=== PATIENT | male | born 1965 | race Two or more races ===

== ENCOUNTER 2024-12-07 18:54 | Emergency (ER) | payer BC, MEDICAID, SELFPAY ==
[2024-12-07 18:56] VITALS: BMI 27.1
[2024-12-07 19:47] VITALS: BP 88/59; PULSE 96; RESP 18; TEMP 37.2; O2SAT 99
--- NOTE | 2024-12-07 19:55 | EKG_ITS ---
[facility] Test Date: 2024-12-07 Pat Name: SHABANA RM Department: Room: - Gender: Male Billing Checker: : 1965 Requested By: Zachery Pendleton Order Number: [id number] Reading MD: Zachery Pendleton Measurements Intervals [place] Rate: 86 P: 26 [place]: 183 QRS: -37 QRSD: 99 T: 46 QT: 342 QTc: 411 Interpretive Statements SINUS RHYTHM LEFT AXIS DEVIATION [QRS AXIS < -30] No previous ECG available for comparison /store/S0/[id number].pdf
--- NOTE | 2024-12-07 20:21 | XR_ITS ---
Examination: PA chest single view TECHNIQUE: Upright PA chest single view Date and time: December 07, 2024 2048 hours INDICATIONS: Shortness of breath beginning 2 weeks ago. FINDINGS: Suspicious for early left base pneumonia, obscuring detail medial portion left hemidiaphragm Right lung clear Normal heart size IMPRESSION: Suspicious for early left basilar pneumonia
--- NOTE | 2024-12-07 20:21 | XR_ITS ---
Examination: CT brain head without contrast. 2-D sagittal coronal reconstructions Date and time of exam:December 07, 20242036 hours INDICATIONS: Headache weakness blurred vision dizziness today CTDI: vol (mGy):53 DLP: (mGycm):1053 Technique: Multiple CT axial sections of the brain have been obtained, 5 mm slice thickness. Contrast has not been administered. 2-D sagittal, coronal reconstructions have been obtained Low dose protocols were performed. One or more of the following dose reduction techniques were used; automated exposure control, adjustment of the mA and/or KV according to patient size, use of iterative reconstruction technique. Findings: No significant ventricular enlargement. 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 No mass effect or midline shift Basal cisterns are not remarkable. Fourth ventricle is midline. Cranial vault intact. Impression: Negative for acute hemorrhage, mass effect or midline shift Advise clinical correlation and follow up accordingly
--- NOTE | 2024-12-07 20:35 | PD.EDRECHK ---
ED Recheck Abnl Lab Rx-RME/HPI General Chief Complaint: General Adult/Misc Complain Stated Complaint: NEUROPATHY X1 YEAR WITH BLURRY VISION, HX DM Time Seen by Provider: 12/07/24 20:14 Arrival date/time: 12/07/24 18:54 59M with history of DM (not very adherent) and cataract surgery, as well as smoking, presents to ED with 1 year of intermittent blurry vision and dizziness/vertigo. Patient has also has peripheral numbness for the past year. Patient sees PCP once a month, but states PCP is not managing DM well. Separately, patient has 1 week of intermittent SOB, but denies URI symptoms. Limitations: no limitations Related Data Previous Rx's ?Medication ?Instructions ?Recorded ibuprofen 800 mg tablet (IBU) 800 mg PO Q8H #20 tabs 08/28/23 empagliflozin 25 mg tablet 25 mg PO QDAY #30 tabs 09/18/23 (Jardiance) Allergies Allergy/AdvReac Type Severity Reaction Status Date / Time No Known Allergies Allergy Verified 12/07/24 18:59 Review of Systems Review of Systems Systems Reviewed: All systems reviewed, normal except as documented Constitutional Constitutional: Reports system reviewed and no additional complaints, except as documented, Denies fever(s) and Denies headache(s) Eyes Eyes: Reports as per HPI and Reports blurry vision ENT Ears, Nose, Mouth, and Throat: Reports as per HPI, Denies disequilibrium, Denies headache(s) and Reports vertigo Cardiovascular Cardiovascular: Reports system reviewed and no additional complaints, except as documented, Denies chest pain and Denies dyspnea Respiratory Respiratory: Reports system reviewed and no additional complaints, except as documented, Denies cough and Denies dyspnea Gastrointestinal Gastrointestinal: Reports system reviewed and no additional complaints, except as documented, Denies abdominal pain, Denies nausea and Denies vomiting Musculoskeletal Musculoskeletal: Reports numbness Neurologic Neurologic: Reports system reviewed and no additional complaints, except as documented, Reports as per HPI, Denies confusion, Denies disequilibrium, Denies headache(s), Reports numbness and Reports vertigo Psychiatric Psychiatric: Denies confusion Past Medical History Past Medical History ENDOCRINE: Positive Diabetes Mellitus Type 2 Social History SMOKING STATUS: Heavy (> 1 pack/day) ED Exam General Limitations: Present no limitations General appearance: Present alert and in no apparent distress Head Head exam: Present atraumatic Eye Eye exam: Present normal appearance, PERRL and EOMI ENT ENT exam: Present normal exam, normal oropharynx and mucous membranes moist Neck Neck exam: Present normal inspection, full ROM and trachea midline Chest Chest inspection: Present normal inspection and symmetric chest wall rise Respiratory Respiratory exam: Present normal lung sounds bilaterally Cardiovascular Cardiovascular exam: Present regular rate, normal rhythm and normal heart sounds Abdominal Exam Abdominal exam: Present soft and normal bowel sounds Extremities Exam Extremities exam: Present normal inspection and full ROM Back Exam Back exam: Present normal inspection and full ROM Neurological Exam Neurological exam: Present alert, oriented X3 and CN II-XII intact Psychiatric Psychiatric exam: Present normal affect and normal mood Skin Skin exam: Present warm, dry, intact and normal color Course Quality Measures none Orders Category Date Time Status Blood glucose [Bedside Blood Glucose] NOW Care 12/07/24 19:55 Active EKG (ED ONLY) *Do not use* NOW Care 12/07/24 19:[address] head/brain wo con Stat Exams 12/07/24 20:21 Completed EKG (ED Only) Stat Exams 12/07/24 19:55 Draft XR chest 1V portable Stat Exams 12/07/24 20:21 Completed A1C [Glycohemoglobin w (eAG)] Stat Lab 12/07/24 20:35 Completed Alcohol, Blood Medical Stat Lab 12/07/24 20:35 Completed BNP [B-Type Natriuretic Peptide] Stat Lab 12/07/24 20:35 Completed CBC Stat Lab 12/07/24 20:35 Completed CMP [Comprehensive Metabolic Panel] Stat Lab 12/07/24 20:35 Completed Cocci Serology IgM with reflex to IgG [Cocci Serology, Lab 12/07/24 20:35 Received Unk History] Stat Drug Screen,Urine Stat Lab 12/07/24 20:27 Completed Free T4 (Free Thyroxine) Stat Lab 12/07/24 20:35 Completed Lactate (Lactic Acid) Stat Lab 12/07/24 20:35 Completed Procalcitonin Stat Lab 12/07/24 20:35 Completed TSH [Thyroid Stimulating Hormone] Stat Lab 12/07/24 20:35 Completed Troponin I Stat Lab 12/07/24 20:35 Completed Urinalysis, C/S if Indicated Stat Lab 12/07/24 20:27 Completed Gabapentin [Neurontin] Med 12/07/24 20:22 Discontinued 300 mg PO X1 ONE Vital Signs Vital signs: Vital Signs Temperature 99 F 12/07/24 19:47 Pulse Rate 96 12/07/24 19:47 Respiratory Rate 18 12/07/24 19:47 Blood Pressure 88/59 L 12/07/24 19:47 Pulse Oximetry (%) 99 12/07/24 19:47 Oxygen Delivery Method Room Air 12/07/24 19:47 O2 at 99% on RA and WNLs Recheck / Abnormal Lab / Rx MDM Narrative MDM Narrative:: 59M with history of DM (not very adherent) and cataract surgery, as well as smoking, presents to ED with 1 year of intermittent blurry vision and dizziness/vertigo. Patient has also has peripheral numbness for the past year. Patient sees PCP once a month, but states PCP is not managing DM well. Separately, patient has 1 week of intermittent SOB, but denies URI symptoms. Physical exam reveals mildly pinpoint pupils. Speech normal. Gait normal. Normal WOB. Patient is afebrile, calm, and alert. EKG is NSR. CT head old CVA, though patient does not remember if it happened. No leukocytosis or anemia. CMP unremarkable. Procal/lactate normal. CXR possible PNA, but patient denies cough. CMP, TSH, T4 unremarkable. A1C 8.3%. Trop normal. UA clean with no dehydration. Lots of glucose. Hammer Setter given. Patient data External records reviewed:: [facility] previous records Clinical information provided by:: patient Social determinants that could affect healthcare access:: none Patient has the following chronic illnesses:: DM, cataract surgery, and smoking How is presenting disease/condition affected by chronic disease/condition?: exacerbated by Evaluation data The following diagnostics were reviewed and interpreted by me:: lab results, radiology exam(s) and EKG tracing(s) Lab and/or radiology exams considered but not ordered:: ordered Interpretation Summary: above Medications / Prescriptions Medications or Prescriptions considered but not ordered:: ordered Medication administrations:: Medication Administration History Discontinued Medications Gabapentin (Gabapentin 300 Mg Capsule) 300 mg PO X1 ONE Stop: 12/07/24 20:23 Last Admin: 12/07/24 21:32 Dose: 300 mg Documented By: GG above Consultations Consultation(s) initiated? (list below): No Diagnosis Recheck Differential Diagnosis: encounter for medication refill, encounter for wound recheck, encounter for recheck of burn, encounter for removal of sutures, warfarin-induced coagulopathy and other (DM complication and dizziness) Most likely diagnosis given after review of the tests above:: DM complication and dizziness Admission Indicated Admission indicated?: not indicated Admission Request Was there a request for admission?: No Disposition Plan Disposition Plan: Discharge Discharge Attestation Discharge Attestation: The patient and all family members were given an opportunity to ask questions and understood the discharge instructions. Discharge instructions specifically effects, indications for sooner follow up or return to the emergency department, and the expected course of current diagnosis. Patient condition: Stable Discharge Plan Plan Patient Disposition: HOME (Self Care) Discharge Disposition comment: Stable Prescriptions/Referrals Prescriptions/Med Rec: No Action ibuprofen [IBU] 800 mg tablet 800 mg PO Q8H Qty: 20 0RF Jardiance 25 mg tablet 25 mg PO QDAY Qty: 30 0RF Referrals: No Primary/Family,Physician [Primary Care Provider] - In 1 week Problem List Clinical Impression: Dizziness, Diabetes mellitus with multiple complications Patient/Caregiver Discharge Instructions Education Materials: ED Dizziness, Uncertain Cause Additional Instructions: Please follow-up with PCP within 24-48 hours and return immediately if symptoms worsen. Print Language: Vietnamese Stand Alone Forms: Patient Portal Info Letter PA/SENIOR ARCHITECT/DESIGN MANAGER Supervising Physician JAG/OPAL Supervising Physician: Dr. Fairchild
[2024-12-07 20:55] LABS: Collection Type, Urine Clean Catch; Squamous Epithelial Cell,Urine 0 /hpf (0-5)
[2024-12-07 20:59] LABS: Basophils # (Auto) 0.1 Thou/mm3 (0.0-0.2); Basophils % (Auto) 1 % (0-2.5); Eosinophils # (Auto) 0.3 Thou/mm3 (0.0-0.5); Eosinophils % (Auto) 3 % (0-10); Hematocrit 51.4 % (41.0-53.0); Hemoglobin 17.9 g/dL (13.5-16.0); Immature Granulocytes % (Auto) 0 % (0-0); Immature Granulocytes Auto 0.03 Thou/mm3 (0.00-0.00); Lymphocytes # (Auto) 2.7 Thou/mm3 (1.0-4.8); Lymphocytes % (Auto) 29 % (10-50); Mean Corpuscular HGB Conc 34.8 g/dl (31.0-37.0); Mean Corpuscular Hemoglobin 25.8 pg (25.0-35.0); Mean Corpuscular Volume 74 fL (80-100); Monocytes % (Auto) 11 % (0-12); Neutrophils # (Auto) 5.4 Thou/mm3 (1.8-7.7); Neutrophils % (Auto) 57 % (37-80); Nucleated Red Blood Cell % 0 /100 WBC (0); Platelet Count 218 Thou/mm3 (140-440); RDW Standard Deviation 44.8 fL (35.1-43.9); Red Blood Count 6.93 Miln/mm3 (4.50-5.90); White Blood Count 9.6 Thou/mm3 (3.8-10.6)
[2024-12-07 21:16] LABS: B-Type Natriuretic Peptide 58 pg/mL (0-100)
[2024-12-07 21:18] LABS: Bilirubin,Urine Negative (Negative); Blood,Urine Negative (Negative); Clarity,Urine Clear (Clear/Hazy); Color,Urine Lt-Yellow (Lt Yel-Yel); Culture Indicated,Urine Not Indicated; Glucose, Urine 4+ (Negative); Ketones,Urine Negative (Negative); Leukocyte Esterase,Urine Negative (Negative); Nitrite,Urine Negative (Negative); Protein,Urine Negative (Neg - Trace); RBC,Urine < 1 /hpf (0-3); Specific Gravity,Urine 1.038 (1.001-1.035); Urobilinogen,Urine Negative mg/dL (0.0-1.0); WBC,Urine 1 /hpf (0-5)
[2024-12-07 21:29] LABS: Alanine Aminotransferase 18 U/L (10-49); Albumin, Serum 4.7 gm/dL (3.4-4.8); Albumin/Globulin Ratio 1.7 (1.2-2.2); Alcohol, Blood Medical < 3.0 mg/dL (0-10.0); Alkaline Phosphatase 102 U/L (46-116); Anion Gap 8 (7-16); Aspartate Amino Transferase 18 U/L (0-34); BUN/Creatinine Ratio 10 Ratio (12-20); Bilirubin,Total 0.7 mg/dL (0.3-1.2); Blood Urea Nitrogen 10 mg/dL (9-23); Calcium 10.6 mg/dL (8.3-10.6); Calcium (Corrected) 10.6 mg/dL (8.5-10.1); Carbon Dioxide 27.9 mMol/L (20.0-31.0); Chloride 100 mMol/L (98-107); Estimated Creatinine Clearance 86.2 mL/min (>60); Free T4 (Free Thyroxine) 1.37 ng/dL (0.89-1.76); Globulin 2.8 gm/dL (2.3-3.5); Glucose 245 mg/dL (74-106); Osmolality,Calculated 278 (275-295); Potassium 4.6 mMol/L (3.4-5.1); Procalcitonin 0.15 ng/ml (0.0-0.49); Sodium 136 mMol/L (136-145); Total Protein 7.5 gm/dL (5.7-8.2); Troponin I < 0.020 ng/mL (0.0-0.045); eGFR > 60 See Note
[2024-12-07] MEDS: GABAPENTIN 300 MG CAPSULE PO (21:32)
[2024-12-07 21:51] LABS: Amphetamine/Methamp Scrn,U Negative (Negative); Barbiturate Screen,Urine Negative (Negative); Benzodiazepines Screen,Urine Negative (Negative); Benzoylecgonine Screen, Ur Negative (Negative); Fentanyl Screen,Urine Negative (Negative); Opiate Screen,Urine Negative (Negative); THC Screen,Urine Negative (Negative)
[2024-12-07 21:54] LABS: Glucose Estimated Average 194 mg/dL (80-131); Hemoglobin A1C 8.4 % Hgb (4.8-6.0)
[2024-12-07 22:09] VITALS: BP 137/85; PULSE 80; RESP 18; TEMP 36.6; O2SAT 99
[2024-12-08 13:10] LABS: Cocci Serology, IgM Negative (Negative)
[2024-12-09 11:59] LABS: Cocci Serology, IgG Negative (Negative)
== END 2024-12-07 22:18 | disposition home or self-care (01) ==
PROVIDERS: Physician Assistant; Emergency Provider Emergency Medicine
DX: R42 Dizziness and giddiness (principal); E11.8 Type 2 diabetes mellitus with unspecified complications
CPT/HCPCS: 36415; 70450; 71045; 80053; 80307; 80320; 81001; 83036; 83605; 83880; 84145; 84439; 84443; 84484; 85025; 86331; 86635; 93005; 99284; A9270; G0480

== ENCOUNTER 2025-03-16 07:32 | Emergency (ER) | payer BC, MEDICAID, SELFPAY ==
[2025-03-16 07:33] VITALS: BMI 27.1
--- NOTE | 2025-03-16 07:37 | EKG_ITS ---
[facility] Test Date: 2025-03-16 Pat Name: SHABANA RM Department: Room: - Gender: Male Winding Department Supervisor: : 1965 Requested By: Carrington Healy (TAMAR) Order Number: [id number] Reading MD: Carrington Healy (DIRECTOR OF MARKET INTELLIGENCE) Measurements Intervals [place] Rate: 102 P: 40 NV: 186 QRS: -35 QRSD: 108 T: 44 QT: 322 QTc: 420 Interpretive Statements SINUS TACHYCARDIA WITH OCCASIONAL VENTRICULAR PREMATURE COMPLEXES LEFT AXIS DEVIATION [QRS AXIS < -30] Compared to ECG 12/07/2024 20:00:47 Ventricular premature complex(es) now present Sinus rhythm no longer present /store/S0/[id number]/[id number].pdf
[2025-03-16 07:47] VITALS: BP 100/66; PULSE 115; RESP 16; TEMP 37.1; O2SAT 100
--- NOTE | 2025-03-16 07:51 | XR_ITS ---
Examination: CT brain head without contrast. 2-D sagittal coronal reconstructions Date and time of exam:March 16, 2025 0931 hours COMPARISON: December 07, 2024 INDICATIONS: Generalized head pain and dizziness today CTDI: vol (mGy):54 DLP: (mGycm):1107 Technique: Multiple CT axial sections of the brain have been obtained, 5 mm slice thickness. Contrast has not been administered. 2-D sagittal, coronal reconstructions have been obtained Low dose protocols were performed. One or more of the following dose reduction techniques were used; automated exposure control, adjustment of the mA and/or KV according to patient size, use of iterative reconstruction technique. Findings: No significant ventricular enlargement. Intra-axial or extra-axial hemorrhage density is not seen. No mass effect or midline shift Basal cisterns are not remarkable. Fourth ventricle is midline. Cranial vault intact. Impression: Negative for acute hemorrhage, mass effect or midline shift As clinically warranted, if symptoms persist, recommend brain MRI MRA stroke protocol, without contrast, follow-up
--- NOTE | 2025-03-16 07:51 | XR_ITS ---
Examination: PA lateral chest 2 views TECHNIQUE: Upright PA lateral chest 2 views Date and time: March 16, 2025 0808 hours INDICATIONS: Chest pain dizziness beginning 2 months ago. FINDINGS: Normal heart size. The lungs are clear. The osseous structures are intact IMPRESSION: No active disease.
--- NOTE | 2025-03-16 07:52 | PD.EDRME ---
Rapid Medical Screening Exam PENDING SALE TO [facility] Arrival date/time: 03/16/25 07:32 59-year-old male with medical history significant for diabetes presents to the emergency department for complaints of syncopal episodes and fatigue ongoing for the last 6 months after hitting his head Chief Complaint: Chest Pain
[2025-03-16 08:26] LABS: Basophils # (Auto) 0.1 Thou/mm3 (0.0-0.2); Basophils % (Auto) 0 % (0-2.5); Eosinophils # (Auto) 0.1 Thou/mm3 (0.0-0.5); Eosinophils % (Auto) 1 % (0-10); Hematocrit 48.3 % (41.0-53.0); Hemoglobin 16.2 g/dL (13.5-16.0); Immature Granulocytes Auto 0.05 Thou/mm3 (0.00-0.00); Lymphocytes # (Auto) 2.1 Thou/mm3 (1.0-4.8); Lymphocytes % (Auto) 14 % (10-50); Mean Corpuscular HGB Conc 33.5 g/dl (31.0-37.0); Mean Corpuscular Hemoglobin 25.7 pg (25.0-35.0); Mean Corpuscular Volume 77 fL (80-100); Monocytes # (Auto) 2.1 Thou/mm3 (0.0-0.8); Monocytes % (Auto) 14 % (0-12); Neutrophils # (Auto) 9.9 Thou/mm3 (1.8-7.7); Neutrophils % (Auto) 70 % (37-80); Nucleated Red Blood Cell # 0.00 Thou/mm3 (0.00-0.00); Nucleated Red Blood Cell % 0 /100 WBC (0); Platelet Count 238 Thou/mm3 (140-440); RDW Standard Deviation 43.8 fL (35.1-43.9); Red Blood Count 6.31 Miln/mm3 (4.50-5.90); White Blood Count 14.3 Thou/mm3 (3.8-10.6)
--- NOTE | 2025-03-16 08:42 | PD.EDCHEST ---
ED Chest Pain RME/HPI General Chief Complaint: Chest Pain Stated Complaint: CHEST PAIN, DIZZINESS Time Seen by Provider: 03/16/25 08:32 Arrival date/time: 03/16/25 07:32 RME / HPI RME / HPI narrative: 03/16/25 07:32 59-year-old male with medical history significant for diabetes presents to the emergency department for complaints of syncopal episodes and fatigue ongoing for the last 6 months after hitting his head DR. BRAVO MAIN ED EVALUATION 59 year old male with history of CVA, diabetes, neuropathy, chronic pain to his shoulder and back ([place]) presents to the ED for multiple complaints. States he has not been sleeping, is sweating, has left-sided chest pressure, unable to tie shoes due to hand and feet pain. Additionally reports yesterday he had one syncopal episode and today feels faint. Also states he feels nauseated, dizzy and off balance all the time and symptoms today unchanged from baseline (takes Meclizine and Zofran). Accompanied by feeling short of breath and sweats that is worse with eating. Also complains of knee swelling beginning several days. Also states he has chronic shoulder and back pain and takes [place] which he has not taken today due to not have access to his medication today. Patient reports head injury 6 months ago. Social hx: +alcohol use, rare, THC gummies for sleep before Related Data Previous Rx's ?Medication ?Instructions ?Recorded ibuprofen 800 mg tablet (IBU) 800 mg PO Q8H #20 tabs 08/28/23 empagliflozin 25 mg tablet 25 mg PO QDAY #30 tabs 09/18/23 (Jardiance) Allergies Allergy/AdvReac Type Severity Reaction Status Date / Time No Known Allergies Allergy Verified 03/16/25 07:36 Review of Systems Review of Systems Systems Reviewed: All systems reviewed, normal except as documented Past Medical History Past Medical History ENDOCRINE: Positive Diabetes Mellitus Type 2 Social History SMOKING STATUS: Current every day smoker ED Exam Narrative Physical exam: GENERAL APPEARANCE: alert and oriented x 4, well-developed, well-nourished, no acute distress HEENT: Normocephalic, atraumatic; pupils equal, round, reactive to light; EOMI; mucous membranes pink, moist; oropharynx clear NECK: Supple LUNGS: CTABL; no wheezes, no rales, no rhonchi HEART: Regular rate, regular rhythm, occasional PVCs on telemetry; normal S1, S2; no murmurs ABDOMEN: non distended; normal BS; soft, no tenderness, no guarding, no rebound; no masses, no organomegaly, no hernia BACK: no CVA tenderness EXTREMITIES: atraumatic; no edema NEUROLOGIC: awake; alert and oriented x4; cranial nerves II-XII grossly intact; no focal sensory or motor deficits PSYCHIATRIC: appropriate mood and affect SKIN: warm, dry, normal color; no rashes Course Quality Measures none Orders Category Date Time Status Bedside COVID-19 Antigen Test NOW Care 03/16/25 09:52 Completed Bedside Influenza A&B Antigen Test NOW Care 03/16/25 09:52 Completed Associate Professor Of Geography NOW Care 03/16/25 07:51 Completed EKG (ED ONLY) *Do not use* NOW Care 03/16/25 07:37 Completed EKG (ED ONLY) *Do not use* NOW Care 03/16/25 11:00 Completed Orthostatic Vitals NOW Care 03/16/25 09:[address] head/brain wo con Stat Exams 03/16/25 07:51 Completed EKG (ED Only) Stat Exams 03/16/25 07:37 Draft EKG (ED Only) Stat Exams 03/16/25 11:00 Draft XR chest 2V Stat Exams 03/16/25 07:51 Completed XR knee comp RT 4V Stat Exams 03/16/25 09:52 Completed Alcohol, Blood Medical Stat Lab 03/16/25 10:22 Completed B-Type Natriuretic Peptide Stat Lab 03/16/25 08:16 Completed CBC Stat Lab 03/16/25 08:16 Completed Comprehensive Metabolic Panel Stat Lab 03/16/25 08:16 Completed Drug Screen,Urine Stat Lab 03/16/25 08:20 Completed ESR [Sed Rate (ESR)] Stat Lab 03/16/25 10:22 Completed Magnesium Stat Lab 03/16/25 08:16 Completed Partial Thromboplastin Time Stat Lab 03/16/25 08:16 Completed Prothrombin Time with INR Stat Lab 03/16/25 08:16 Completed Troponin I Stat Lab 03/16/25 08:16 Completed Urinalysis, C/S if Indicated Stat Lab 03/16/25 08:20 Completed HYDROcodone*/APAP 5/325 [[place] 5/325] Med 03/16/25 10:47 Discontinued 1 tab PO X1 ONE HYDROcodone*/APAP 5/325 [[place] 5/325] Med 03/16/25 13:54 Discontinued 2 tab PO X1 ONE Morphine* Inj Med 03/16/25 13:41 Discontinued 4 mg IVP X1 ONE Ondansetron Inj [Zofran Inj] Med 03/16/25 13:41 Discontinued 4 mg IVP X1 ONE Sodium Chloride 0.9% 1000 ml [Ns] 1,000 ml Med 03/16/25 09:53 Discontinued IV 999 mls/hr Sodium Chloride 0.9% 1000 ml [Ns] 1,000 ml Med 03/16/25 13:41 Discontinued IV 999 mls/hr Sodium Chloride 0.9% 1000 ml [Ns] 1,000 ml Med 03/16/25 13:54 Discontinued IV 999 mls/hr Vital Signs Vital signs: Vital Signs Temperature 98.8 F 03/16/25 07:47 Pulse Rate 115 H 03/16/25 07:47 Respiratory Rate 16 03/16/25 07:47 Blood Pressure 100/66 03/16/25 07:47 Pulse Oximetry (%) 100 03/16/25 07:47 Oxygen Delivery Method Room Air 03/16/25 07:47 Pulse ox is 100% on room air which is adequate. Chest Pain MDM Narrative MDM Narrative:: [place] am scribing for and in the presence of Dr. Bravo. 1430: Patients orthostatic vital signs are positive. Ordered additional IV fluids. Patient also refused the Morphine and was given [place] instead. 1530: Patient reports feeling improved after IV fluids. Will DC home. Patient data External records reviewed:: [facility] previous records Clinical information provided by:: patient Social determinants that could affect healthcare access:: none Patient has the following chronic illnesses:: Diabetes, chronic pain How is presenting disease/condition affected by chronic disease/condition?: exacerbated by Evaluation data The following diagnostics were reviewed and interpreted by me:: lab results, radiology exam(s) and EKG tracing(s) (EKG @ 07:51 AM sinus tachycardia with occasional PVCs, rate 102, LAD. EKG @ 11:04 AM sinus tachycardia, rate 107, LAD. ) Lab and/or radiology exams considered but not ordered:: None Interpretation Summary: Ordering Physician: Niraj BANDACarrington Rodarte NP Date of Service: 03/16/25 Procedure(s): XR chest 2V Accession Number(s): [id number] cc: Niraj BANDA),Carrington BOYLE; Heath Liao MD~ Examination: PA lateral chest 2 views TECHNIQUE: Upright PA lateral chest 2 views Date and time: March 16, 2025 0808 hours INDICATIONS: Chest pain dizziness beginning 2 months ago. FINDINGS: Normal heart size. The lungs are clear. The osseous structures are intact IMPRESSION: No active disease. Dictated By: Heath Liao MD Signed By: <Electronically signed by Heath Liao MD in OV> 03/16/25 0859 Ordering Physician: Carrington Healy NP, NP Date of Service: 03/16/25 Procedure(s): CT head/brain wo con Accession Number(s): [id number] cc: Niraj BANDA)Carrington NP; Heath Liao MD; NO PRIMARY/FAMILY,PHYSICIAN~ Examination: CT brain head without contrast. 2-D sagittal coronal reconstructions Date and time of exam:March 16, 2025 0931 hours COMPARISON: December 07, 2024 INDICATIONS: Generalized head pain and dizziness today CTDI: vol (mGy):54 DLP: (mGycm):1107 Technique: Multiple CT axial sections of the brain have been obtained, 5 mm slice thickness. Contrast has not been administered. 2-D sagittal, coronal reconstructions have been obtained Low dose protocols were performed. One or more of the following dose reduction techniques were used; automated exposure control, adjustment of the mA and/or KV according to patient size, use of iterative reconstruction technique. Findings: No significant ventricular enlargement. Intra-axial or extra-axial hemorrhage density is not seen. No mass effect or midline shift Basal cisterns are not remarkable. Fourth ventricle is midline. Cranial vault intact. Impression: Negative for acute hemorrhage, mass effect or midline shift As clinically warranted, if symptoms persist, recommend brain MRI MRA stroke protocol, without contrast, follow-up Dictated By: Heath Liao MD Signed By: <Electronically signed by Heath Liao MD in OV> 03/16/25 1009 Ordering Physician: Freda Bravo MD Date of Service: 03/16/25 Procedure(s): XR knee comp RT 4V Accession Number(s): [id number] cc: Heath Liao MD; NO PRIMARY/FAMILY,PHYSICIAN; Freda Bravo MD~ Examination: Right knee 4 views TECHNIQUE: AP oblique lateral axial right knee 4 views Date and time: March 16, 2025, 0952 hours INDICATIONS: Patient fell today with injury to the knee with pain and swelling. FINDINGS: Significant osteopenia. No fracture or patellar dislocation. Prepatellar soft tissue prominence IMPRESSION: Suspicious for prepatellar soft tissue hematoma, consider ultrasound soft tissue knee follow-up Dictated By: Heath Liao MD Signed By: <Electronically signed by Heath Liao MD in OV> 03/16/25 1053 Medications / Prescriptions Medications or Prescriptions considered but not ordered:: None Medication administrations:: Medication Administration History Discontinued Medications Hydrocodone Bitart/Acetaminophen (Hydrocodone/Apap 5/325 Tablet) 1 tab PO X1 ONE Stop: 03/16/25 10:48 Last Admin: 03/16/25 11:03 Dose: 1 tab Documented By: ED Hydrocodone Bitart/Acetaminophen (Hydrocodone/Apap 5/325 Tablet) 2 tab PO X1 ONE Stop: 03/16/25 13:55 Last Admin: 03/16/25 14:08 Dose: 2 tab Documented By: DO Sodium Chloride (Ns) 1,000 mls @ 999 mls/hr IV .Q1H1M ONE Stop: 03/16/25 10:53 Last Infusion: 03/16/25 11:48 Dose: Infused Documented By: Admin: 03/16/25 10:40 Dose: 999 mls/hr Documented By: DO Sodium Chloride (Ns) 1,000 mls @ 999 mls/hr IV .Q1H1M ONE Stop: 03/16/25 14:41 Last Infusion: 03/16/25 14:09 Dose: Infused Documented By: Admin: 03/16/25 13:51 Dose: 999 mls/hr Documented By: DO Sodium Chloride (Ns) 1,000 mls @ 999 mls/hr IV .Q1H1M ONE Stop: 03/16/25 14:54 Last Infusion: 03/16/25 15:10 Dose: Infused Documented By: Admin: 03/16/25 14:09 Dose: 999 mls/hr Documented By: DO Morphine Sulfate (Morphine Sulf Inj 4 Mg/Ml Vial) 4 mg IVP X1 ONE Stop: 03/16/25 13:42 Last Admin: 03/16/25 13:55 Dose: Not Given Documented By: DO Non-Admin Reason: Patient Refused Ondansetron HCl (Ondansetron Inj 2 Mg/Ml Inj 2 Ml) 4 mg IVP X1 ONE Stop: 03/16/25 13:42 Last Admin: 03/16/25 13:56 Dose: Not Given Documented By: DO Non-Admin Reason: Patient Refused See above Consultations Consultation(s) initiated? (list below): No Diagnosis Most likely diagnosis given after review of the tests above:: Orthostatic hypotension Dizziness Admission Indicated Admission indicated?: not indicated Admission Request Was there a request for admission?: No Disposition Plan Disposition Plan: Discharge Discharge Attestation Discharge Attestation: The patient and all family members were given an opportunity to ask questions and understood the discharge instructions. Discharge instructions specifically effects, indications for sooner follow up or return to the emergency department, and the expected course of current diagnosis. Patient condition: Stable Discharge Plan Plan Patient Disposition: HOME (Self Care) Prescriptions/Referrals Prescriptions/Med Rec: No Action ibuprofen [IBU] 800 mg tablet 800 mg PO Q8H Qty: 20 0RF Jardiance 25 mg tablet 25 mg PO QDAY Qty: 30 0RF Referrals: No Primary/Family,Physician [Primary Care Provider] - In 1 week Problem List Clinical Impression: Orthostatic hypotension, Dizziness Patient/Caregiver Discharge Instructions Education Materials: ED Hypotension, Orthostatic Print Language: Divehi Stand Alone Forms: Magalie Award Info., Patient Portal Info Letter
[2025-03-16 08:50] LABS: B-Type Natriuretic Peptide 36 pg/mL (0-100)
[2025-03-16 08:52] LABS: Alanine Aminotransferase 11 U/L (10-49); Albumin, Serum 4.3 gm/dL (3.4-4.8); Albumin/Globulin Ratio 1.6 (1.2-2.2); Alkaline Phosphatase 87 U/L (46-116); Anion Gap 12 (7-16); Aspartate Amino Transferase 15 U/L (0-34); BUN/Creatinine Ratio 8 Ratio (12-20); Bilirubin,Total 1.3 mg/dL (0.3-1.2); Blood Urea Nitrogen 6 mg/dL (9-23); Calcium 9.7 mg/dL (8.3-10.6); Calcium (Corrected) 9.7 mg/dL (8.5-10.1); Carbon Dioxide 24.0 mMol/L (20.0-31.0); Chloride 100 mMol/L (98-107); Creatinine (Component) 0.8 mg/dL (0.6-1.3); Estimated Creatinine Clearance 107.8 mL/min (>60); Globulin 2.7 gm/dL (2.3-3.5); Glucose 160 mg/dL (74-106); Magnesium 1.9 mg/dL (1.6-2.6); Osmolality,Calculated 272 (275-295); Potassium 3.8 mMol/L (3.4-5.1); Sodium 136 mMol/L (136-145); Total Protein 7.0 gm/dL (5.7-8.2); Troponin I < 0.020 ng/mL (0.0-0.045); eGFR > 60 See Note
[2025-03-16 08:53] LABS: Collection Type, Urine Clean Catch; Squamous Epithelial Cell,Urine 0 /hpf (0-5)
[2025-03-16 08:55] LABS: INR 1.0 (0.9-1.3); Partial Thromboplastin Time 27.6 Seconds (22.0-36.0); Prothrombin Time 11.4 Seconds (9.0-12.2)
[2025-03-16 09:10] LABS: Amphetamine/Methamp Scrn,U Negative (Negative); Barbiturate Screen,Urine Negative (Negative); Benzodiazepines Screen,Urine Negative (Negative); Benzoylecgonine Screen, Ur Negative (Negative); Fentanyl Screen,Urine Negative (Negative); Opiate Screen,Urine Negative (Negative); THC Screen,Urine Negative (Negative)
[2025-03-16 09:23] LABS: Bilirubin,Urine Negative (Negative); Blood,Urine Negative (Negative); Clarity,Urine Clear (Clear/Hazy); Color,Urine Lt-Yellow (Lt Yel-Yel); Culture Indicated,Urine Not Indicated; Glucose, Urine 4+ (Negative); Ketones,Urine 2+ (Negative); Leukocyte Esterase,Urine Negative (Negative); Nitrite,Urine Negative (Negative); PH,Urine 6.0 (5.0-7.0); Protein,Urine Trace (Neg - Trace); RBC,Urine 1 /hpf (0-3); Specific Gravity,Urine 1.033 (1.001-1.035); Urobilinogen,Urine Negative mg/dL (0.0-1.0); WBC,Urine 1 /hpf (0-5)
--- NOTE | 2025-03-16 09:52 | XR_ITS ---
Examination: Right knee 4 views TECHNIQUE: AP oblique lateral axial right knee 4 views Date and time: March 16, 2025, 0952 hours INDICATIONS: Patient fell today with injury to the knee with pain and swelling. FINDINGS: Significant osteopenia. No fracture or patellar dislocation. Prepatellar soft tissue prominence IMPRESSION: Suspicious for prepatellar soft tissue hematoma, consider ultrasound soft tissue knee follow-up
[2025-03-16] MEDS: SODIUM CHLORIDE 0.9% 1000 ML 1,000 ML 999 ML IV ×3 (10:40→14:09)
[2025-03-16 10:47] LABS: Sed Rate (ESR) 30 mm/hr (0-20)
--- NOTE | 2025-03-16 10:48 | PC.NURSE ---
Pt. here from home to room 8, pt. states he was going to come last night but it was to busy, pt. states there was 300 people in line. Pt. states he has been dizzy and feels like he is going to pass out. Pt. states since he had his stroke, he just passes out. Pt. states he doesn't really check his sugar. Pt. states he has pain to left shoulder because he had left shoulder surgery. Pt. states he takes [place] daily for his pain, pt. states he left his [place] in the car today and his daughter took the car to [facility]. No s/s of distress at this time.
[2025-03-16 10:53] VITALS: PULSE 135
--- NOTE | 2025-03-16 11:00 | EKG_ITS ---
[facility] Test Date: 2025-03-16 Pat Name: SHABANA RM Department: Room: - Gender: Male [employer]: : 1965 Requested By: Freda Glez Order Number: [id number] Reading MD: Freda Glez Measurements Intervals Chloride Rate: 107 P: 40 CO: 190 QRS: -39 QRSD: 104 T: 44 QT: 322 QTc: 430 Interpretive Statements SINUS TACHYCARDIA LEFT AXIS DEVIATION [QRS AXIS < -30] Compared to ECG 03/16/2025 07:51:38 Ventricular premature complex(es) no longer present /store/S0/[id number]/ecg/[id number].pdf
--- NOTE | 2025-03-16 11:00 | PC.NURSE ---
Pt. states he had chest pain last night but denies chest pain at this time.
[2025-03-16] MEDS: HYDROcodone/APAP 5/325 TABLET 1 TAB PO (11:03)
[2025-03-16 11:06] LABS: Alcohol, Blood Medical < 3.0 mg/dL (0-10.0)
[2025-03-16 11:15] VITALS: BP 141/90; PULSE 135; RESP 17; TEMP 36.9; O2SAT 97
--- NOTE | 2025-03-16 12:00 | PC.NURSE ---
Pt. has a sore to right knee that is round and open, no drainage noted at this time, pt. right knee is red , raised and swollen. Pt. states he has pain to right knee.
[2025-03-16 13:54] VITALS: BP 144/84; BP 75/61; BP 93/70; PULSE 105; PULSE 84; PULSE 99
[2025-03-16] MEDS: HYDROcodone/APAP 5/325 TABLET 2 TAB PO (14:08)
[2025-03-16 14:44] VITALS: BP 148/88; PULSE 174; RESP 28; TEMP 36.7; O2SAT 95
[2025-03-16 15:42] VITALS: BP 120/84; PULSE 90; RESP 17; TEMP 36.8; O2SAT 99
== END 2025-03-16 15:45 | disposition home or self-care (01) ==
PROVIDERS: Nurse Practitioner Primary Care; Emergency Provider Emergency Medicine
DX: I95.1 Orthostatic hypotension (principal)
CPT/HCPCS: 36415; 70450; 71046; 73564; 80053; 80307; 80320; 81001; 83735; 83880; 84484; 85025; 85610; 85652; 85730; 87400; 87811; 93005; 96360; 96361; 99284; J7030; A9270; G0480